=== PATIENT | female | born 1950 | race Caucasian/White ===

== ENCOUNTER 2016-10-29 15:44 | Inpatient (IN) | payer OTHER ==
--- NOTE | 2016-10-29 19:18 | HP ---
CIWA Score - CIWA Score Nausea/Vomitin-Mild Nausea/No Vomiting Muscle Tremors: 4-Moderate,w/Arms Extend Anxiety: 4-Mod. Anxious/Guarded Agitation: 4-Moderately Restless Paroxysmal Sweats: 1-Minimal Palms Moist Orientation: 0-Oriented Tacttile Disturbances: 0-None Auditory Disturbances: 0-None Visual Disturbances: 0-None Headache: 0-None Present CIWA-Ar Total Score: 14 Admission ROS BHS - HPI Chief Complaint: WITHDRAWAL SX Allergies/Adverse Reactions: Allergies Allergy/AdvReac Type Severity Reaction Status Date / Time No Known Allergies Allergy Verified 10/29/16 18:52 History of Present Illness: 66 YEARS OLD FEMALE WITH LONG HISTORY OF ALCOHOL DEPENDENCE HAS BREASTS CA BILATERALLY SURGICALLY REMOVED LAST CHEMOTHERAPY 07/2016 HAS CHRONIC BACK PAIN TREATED WITH NEURONTIN AND DEPRESSION IS ADMITTED TO DETOX Exam Limitations: No Limitations - Ebola screening Have you traveled outside of the country in the last 21 days: No Have you had contact with anyone from an Ebola affected area: No Have you been sick,other than usual withdrawal symptoms: No Do you have a fever: No - Review of Systems Constitutional: Chills, Changes in sleep, Weight Stable EENT: reports: Cataracts (bilaterally), Other (EYE GLASSES) Respiratory: reports: No Symptoms reported Cardiac: reports: No Symptoms Reported GI: reports: Nausea, Poor Fluid Intake, Indigestion, Abdominal cramping : reports: No Symptoms Reported Musculoskeletal: reports: Joint Pain (KNEES ELBOWS) Integumentary: reports: No Symptoms Reported Neuro: reports: Tremors Endocrine: reports: No Symptoms Reported Hematology: reports: No Symptoms Reported Psychiatric: reports: Judgement Intact, Depressed Other Systems: Reviewed and Negative Patient History - Patient Medical History Hx Anemia: No Hx Asthma: No Hx Chronic Obstructive Pulmonary Disease (COPD): No Hx Cancer: No Hx Cardiac Disorders: No Hx Congestive Heart Failure: No Hx Hypertension: No Hx Hypercholesterolemia: No Hx Pacemaker: No HX Cerebrovascular Accident: No Hx Seizures: No Hx Dementia: No Hx Diabetes: No Hx Gastrointestinal Disorders: No Hx Liver Disease: No Hx Genitourinary Disorders: No Hx Sexually Transmitted Disorders: No Hx Renal Disease (ESRD): No Hx Thyroid Disease: No Hx Human Immunodeficiency Virus (HIV): No Hx Hepatitis C: No Hx Depression: Yes Hx Suicide Attempt: No Hx Bipolar Disorder: No Hx Schizophrenia: No - Patient Surgical History Past Surgical History: Yes Hx Neurologic Surgery: No Hx Cataract Extraction: No Hx Cardiac Surgery: No Hx Lung Surgery: No Hx Breast Surgery: Yes ([id number]) Hx Breast Biopsy: No Hx Abdominal Surgery: No Hx Appendectomy: No Hx Cholecystectomy: No Hx Genitourinary Surgery: No Hx Section: No Hx Orthopedic Surgery: No Hx Hysterectomy: No Anesthesia Reaction: No - PPD History Previous Implant?: Yes Documented Results: Negative w/o proof Implanted On Prior [facility] Admission?: No PPD to be Administered?: Yes - Reproductive History Patient is a Female of Child Bearing Age (11 -55 yrs old): No Patient : No - Smoking Cessation Smoking history: Former smoker Have you smoked in the past 12 months: No Aproximately how many cigarettes per day: 0 If you are a former smoker, when did you quit?: 12 YRS AGO Cigars Per Day: 0 Hx Chewing Tobacco Use: No Initiated information on smoking cessation: No - Substance & Tx. History Hx Alcohol Use: Yes Hx Substance Use: No Substance Use Type: Alcohol Hx Substance Use Treatment: No - Substances Abused Alcohol Route: Oral Frequency: Daily Amount used: liquor- 1 pint VOLKA Age of first use: 22 Date of Last Use: 10/28/16 Family Disease History - Family Disease History Family Disease History: CA: Grandparent (BREAST CA), Mother (), Other: Mother Admission Physical Exam [facility] - Vital Signs Vital Signs: Vital Signs - 24 hr 10/29/16 17:24 Temperature 97.5 F L Pulse Rate 86 Respiratory 20 Rate Blood Pressure 155/86 - Physical General Appearance: Yes: Nourished, Appropriately Dressed, Alcohol on Breath, Tremorous, Irritable, Sweating, Anxious HEENTM: Yes: Hearing grossly Normal, Normal ENT Inspection, Normocephalic, Normal Voice Respiratory: Yes: Chest Non-Tender, Lungs Clear, Normal Breath Sounds, No Respiratory Distress, No Accessory Muscle Use Neck: Yes: Supple, Trachea in good position Breast: Yes: Other (BILATERAL REMOVED 2015), Surgical Scar Cardiology: Yes: Regular Rhythm, Regular Rate, S1, S2 Abdominal: Yes: Non Tender, Soft Genitourinary: Yes: Within Normal Limits Back: Yes: Normal Inspection Musculoskeletal: Yes: full range of Motion, Gait Steady Extremities: Yes: Normal Inspection, Normal Range of Motion, Non-Tender, Tremors Neurological: Yes: Fully Oriented, Alert, Motor Strength 5/5, Normal Response, Depressed Affect Integumentary: Yes: Warm Lymphatic: Yes: Within Normal Limits - Diagnostic (1) Alcohol dependence with uncomplicated withdrawal Current Visit: Yes Status: Acute (2) Depression (emotion) Current Visit: Yes Status: Suspected Qualifiers: Depression Type: dysthymia Qualified Code(s): F34.1 - Dysthymic disorder (3) GERD (gastroesophageal reflux disease) Current Visit: Yes Status: Chronic Qualifiers: Esophagitis presence: without esophagitis Qualified Code(s): K21.9 - Gastro-esophageal reflux disease without esophagitis (4) Carcinoma in situ of breast, bilateral Current Visit: Yes Status: Inactive Cleared for Admission S - Detox or Rehab S Level of Care: Medically Managed Detox Regimen/Protocol: Librium S Breath Alcohol Content Breath Alcohol Content: 0 Vital Signs - Height Height: 5 ft 7 in - Weight Weight: 175 lb Weight Measurement Method: Standing Scale Body Mass Index (BMI): 27.3 - Bowel Function Bowel Movement: Yes Urine Pregancy Test - Result Urine Test Results: Negative- NO Line Present Urine Drug Screen - Results Drug Screen Negative: Yes
[2016-10-29 19:24] VITALS: BMI 27.3
[2016-10-29] MEDS ORDERED: LOPERAMIDE HCL 2 MG CAPSULE PO PRN (19:27)
[2016-10-29] MEDS ORDERED: hydrOXYzine PAMOATE 50 MG CAPSULE (FP) PO PRN (19:27)
[2016-10-29] MEDS ORDERED: chlordiazePOXIDE HCL 25 MG CAPSULE PO PRN (19:27)
[2016-10-29] MEDS ORDERED: chlordiazePOXIDE HCL 25 MG CAPSULE PO ONE (19:27)
[2016-10-29] MEDS ORDERED: MENTHOL/PHENOL 1 EACH UD MM PRN (19:27)
[2016-10-29] MEDS ORDERED: P-EPHED 60MG/TRIPROLIDI 2.5MG TABLET PO PRN (19:27)
[2016-10-29] MEDS ORDERED: diphenhydrAMINE HCL 50 MG CAPSULE PO PRN (19:27)
[2016-10-29] MEDS ORDERED: MAGNESIUM CITRATE 300 ML BOTTLE PO PRN (19:27)
[2016-10-29] MEDS ORDERED: MAG HYDROX/AL HYDROX/SIMETH 30 ML UNIT-DOSE CUP PO PRN (19:27)
[2016-10-29] MEDS ORDERED: guaiFENesin/D-METHORPHAN HB 10 ML UNIT-DOSE CUPS PO PRN (19:27)
[2016-10-29] MEDS ORDERED: ACETAMINOPHEN 325 MG TABLET (FP) PO PRN (19:27)
[2016-10-29] MEDS ORDERED: MAGNESIUM HYDROX 2400MG/30ML ORAL SUSPENSION 30 ML CUP PO PRN (19:27)
[2016-10-29] MEDS: chlordiazePOXIDE HCL 25 MG CAPSULE PO SCH (22:24)
[2016-10-29] MEDS: THIAMINE HCL 100 MG TABLET (FP) PO SCH (22:24)
[2016-10-29] MEDS: cloNIDine HCL 0.1 MG TABLET PO PRN (22:24)
[2016-10-29 23:24] LABS: URINE APPEARANCE CLEAR; URINE BILIRUBIN NEGATIVE (NEGATIVE); URINE BLOOD NEGATIVE (NEGATIVE); URINE COLOR LTYELLOW; URINE GLUCOSE (UA) NEGATIVE (NEGATIVE); URINE KETONE NEGATIVE (NEGATIVE); URINE NITRITE NEGATIVE (NEGATIVE); URINE PROTEIN NEGATIVE (NEGATIVE); URINE UROBILINOGEN NEGATIVE E.U./dl (0.2-1.0)
[2016-10-29 23:26] LABS: URINE LEUK ESTERASE TRACE (NEGATIVE)
[2016-10-29 23:28] LABS: URINE HYALINE CAST 1 /lpf; URINE MUCUS RARE; URINE RBC 1 /hpf (0-3); URINE WBC 1 /hpf (3-5)
[2016-10-30] MEDS: chlordiazePOXIDE HCL 25 MG CAPSULE PO SCH ×4 (06:01→22:23)
--- NOTE | 2016-10-30 08:44 | CONSULT ---
[facility] Psychiatric Consult - Data Date of interview: 10/30/16 Admission source: [facility] Identifying data: This is 66 years old female with no [id number] hospitalization history intoxic ated with: Alcohol Substance Abuse History: - Smoking Cessation. Smoking history: Former smoker. Have you smoked in the past 12 months: No. Aproximately how many cigarettes per day: 0. If you are a former smoker, when did you quit?: 12 YRS AGO. Cigars Per Day: 0. Hx Chewing Tobacco Use: No. Initiated information on smoking cessation: No. - Substance & Tx. History. Hx Alcohol Use: Yes. Hx Substance Use: No. Substance Use Type: Alcohol. Hx Substance Use Treatment: No. - Substances Abused. Alcohol. Route: Oral. Frequency: Daily. Amount used: liquor- 1 pint VOLKA. Age of first use: 22. Date of Last Use: 10/28/16 Medical History: GERD, Unclear, as per comuter bilateral Breast Carcinoma in citu Psychiatric History: Patient repoorts history of depression, reports taking prior to admission: Cymbalta 60mg po qhs Physical/Sexual Abuse/Trauma History: Denies Additional Comment: Cymbalta 60mg po qhs Mental Status Exam - Mental Status Exam Alert and Oriented to: Person Cognitive Function: Fair Patient Appearance: Unkempt Mood: Sad Affect: Flat Patient Behavior: Sedated Speech Pattern: Delayed Voice Loudness: Mildly Soft/Quiet Thought Process: Circumstantial, Goal Oriented Thought Disorder: Being Controlled Hallucinations: Denies Suicidal Ideation: Denies Homicidal Ideation: Denies Insight/Judgement: Fair Sleep: Difficulty falling asleep Appetite: Weight loss Muscle strength/Tone: Mild Hypotonicity Gait/Station: Shuffling Additional Comments: Cymbalta 60mg po qhs Psychiatric Findings - Problem List ([place] 1, 2,3) (1) Alcohol dependence with uncomplicated withdrawal Current Visit: Yes Status: Acute (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
[2016-10-30 09:54] LABS: MCH 29.2 pg (25.7-33.7); MCHC 33.2 g/dl (32.0-36.0); MEAN CELL VOLUME 88.1 fl (80-96); MEAN PLT VOLUME 8.8 fl (7.5-11.1); PLATELET COUNT 283 K/MM3 (134-434); RDW 13.3 % (11.6-15.6); WHITE BLOOD COUNT 6.4 K/mm3 (4.0-10.0)
[2016-10-30 09:56] LABS: ALBUMIN 3.7 g/dl (3.4-5.0); ANION GAP 7 (8-16); CALCIUM 9.1 mg/dL (8.5-10.1); CO2 30 mmol/L (21-32); GLUCOSE,RANDOM 92 mg/dL (74-106)
[2016-10-30 10:00] LABS: ALK PHOS 95 U/L (45-117); BILIRUBIN,TOTAL 0.7 mg/dL (0.2-1.0); CREATININE 0.7 mg/dL (0.55-1.02); SGOT/AST 18 U/L (15-37); SGPT/ALT 32 U/L (12-78); TOT PROT 6.8 g/dl (6.4-8.2)
[2016-10-30] MEDS ORDERED: EYELID CLEANSER COMBINATION TP SCH (10:00)
--- NOTE | 2016-10-30 10:14 | PN ---
[facility] CIWA - CIWA Score Nausea/Vomitin Muscle Tremors: 2 Anxiety: 2 Agitation: 2 Paroxysmal Sweats: 3 Orientation: 0-Oriented Tacttile Disturbances: 1-Very Mild Itch/Numbness Auditory Disturbances: 0-None Visual Disturbances: 0-None Headache: 0-None Present CIWA-Ar Total Score: 12 S Progress Note (SOAP) Subjective: interrupted sleep, sweats, mild shakes Objective: 10/30/16 10:12 Vital Signs Temperature 98.2 F 10/30/16 09:39 Pulse Rate 84 10/30/16 09:39 Respiratory Rate 16 10/30/16 09:39 Blood Pressure 129/77 10/30/16 09:39 O2 Sat by Pulse Oximetry (%) Laboratory Tests 10/29/16 10/30/16 23:05 07:00 WBC 6.4 RBC 4.42 Hgb 12.9 Hct 38.9 MCV 88.1 MCHC 33.2 RDW 13.3 Plt Count 283 MPV 8.8 Urine Color Ltyellow Urine Appearance Clear Urine pH 5.0 Ur Specific [place] 1.020 Urine Protein Negative Urine Glucose (UA) Negative Urine Ketones Negative Urine Blood Negative Urine Nitrite Negative Urine Bilirubin Negative Urine Urobilinogen Negative Ur Leukocyte Esterase Trace H Urine RBC 1 Urine WBC 1 Ur Epithelial Cells Rare Hyaline Casts 1 Urine Mucus Rare pending labs pt aox3 in nad , lying in bed Assessment: 10/30/16 10:13 withdrawal sx's Plan: cont detox increase fluids f/up pending labs systane eye drops
[2016-10-30 10:48] LABS: HIV 1 & 2 AB NEGATIVE; HIV 1 AGp24 NEGATIVE
[2016-10-30] MEDS: PRENATAL VITAMINS W/ FOLIC ACID TABLET (FP) PO SCH (10:54)
[2016-10-30] MEDS: cloNIDine HCL 0.1 MG TABLET PO PRN ×2 (10:54→22:23)
[2016-10-30] MEDS: PATIENT'S OWN MEDICATION (NON-FORMULARY) (Anastrozole [Arimidex -] 1 MG) PO SCH (10:55)
--- NOTE | 2016-10-30 14:47 | EKG ---
Test Reason : Blood Pressure : / mmHG Vent. Rate : 081 BPM Atrial Rate : 081 BPM P-R Int : 138 ms QRS Dur : 102 ms QT Int : 388 ms P-R-T Axes : 073 053 057 degrees QTc Int : 450 ms NORMAL SINUS RHYTHM POSSIBLE LEFT ATRIAL ENLARGEMENT INCOMPLETE RIGHT BUNDLE BRANCH BLOCK BORDERLINE ECG WHEN COMPARED WITH ECG OF 01-JUL-2002 14:55, NO SIGNIFICANT CHANGE WAS FOUND Confirmed by CARLEE CONTRERAS, ZEV ([id number]) on 10/30/2016 2:46:53 PM Referred By: Gabe Lao Confirmed By:ZEV BEJARANO MD
[2016-10-30] MEDS ORDERED: DULoxetine HCL 60 MG CAPSULE.DR PO SCH (22:00)
[2016-10-30] MEDS: [UNRECOGNIZED DRUG - OTHER] OU SCH (22:22)
[2016-10-30] MEDS: THIAMINE HCL 100 MG TABLET (FP) PO SCH (22:23)
[2016-10-30] MEDS: DULOXETINE HCL 60 MG PO SCH (22:23)
[2016-10-31] MEDS: chlordiazePOXIDE HCL 25 MG CAPSULE PO SCH ×3 (05:23→18:28)
[2016-10-31] MEDS: PATIENT'S OWN MEDICATION (NON-FORMULARY) (Anastrozole [Arimidex -] 1 MG) PO SCH (10:24)
[2016-10-31] MEDS: [UNRECOGNIZED DRUG - OTHER] OU SCH ×2 (10:25→22:39)
[2016-10-31] MEDS: PRENATAL VITAMINS W/ FOLIC ACID TABLET (FP) PO SCH (10:25)
--- NOTE | 2016-10-31 13:03 | PN ---
S CIWA - CIWA Score Nausea/Vomitin Muscle Tremors: 2 Anxiety: 2 Agitation: 2 Paroxysmal Sweats: 2 Orientation: 0-Oriented Tacttile Disturbances: 2-Mild Itch/Numbness/Burn Auditory Disturbances: 0-None Visual Disturbances: 0-None Headache: 0-None Present CIWA-Ar Total Score: 12 BHS Progress Note (SOAP) Subjective: feeling better only neuropathy pain Objective: 10/31/16 13:02 Vital Signs Temperature 99.1 F 10/31/16 09:55 Pulse Rate 89 10/31/16 09:55 Respiratory Rate 16 10/31/16 09:55 Blood Pressure 111/72 10/31/16 09:55 O2 Sat by Pulse Oximetry (%) Laboratory Tests 10/29/16 10/30/16 10/30/16 23:05 07:00 07:00 WBC 6.4 RBC 4.42 Hgb 12.9 Hct 38.9 MCV 88.1 MCHC 33.2 RDW 13.3 Plt Count 283 MPV 8.8 Sodium Potassium Chloride Carbon Dioxide Anion Gap BUN Creatinine Creat Clearance w eGFR Random Glucose Calcium Total Bilirubin AST ALT Alkaline Phosphatase Total Protein Albumin Urine Color Ltyellow Urine Appearance Clear Urine pH 5.0 Ur Specific [place] 1.020 Urine Protein Negative Urine Glucose (UA) Negative Urine Ketones Negative Urine Blood Negative Urine Nitrite Negative Urine Bilirubin Negative Urine Urobilinogen Negative Ur Leukocyte Esterase Trace H Urine RBC 1 Urine WBC 1 Ur Epithelial Cells Rare Hyaline Casts 1 Urine Mucus Rare RPR Titer Hepatitis C Antibody HIV 1&2 Antibody Screen Negative HIV P24 Antigen Negative 10/30/16 10/30/16 10/30/16 07:00 07:00 11:20 WBC RBC Hgb Hct MCV MCHC RDW Plt Count MPV Sodium 140 Potassium 4.2 Chloride 103 Carbon Dioxide 30 Anion Gap 7 L BUN 22 H Creatinine 0.7 Creat Clearance w eGFR > 60 Random Glucose 92 Calcium 9.1 Total Bilirubin 0.7 AST 18 ALT 32 Alkaline Phosphatase 95 Total Protein 6.8 Albumin 3.7 Urine Color Urine Appearance Urine pH Ur Specific [place] Urine Protein Urine Glucose (UA) Urine Ketones Urine Blood Urine Nitrite Urine Bilirubin Urine Urobilinogen Ur Leukocyte Esterase Urine RBC Urine WBC Ur Epithelial Cells Hyaline Casts Urine Mucus RPR Titer Nonreactive Hepatitis C Antibody 0.1 HIV 1&2 Antibody Screen HIV P24 Antigen pt aox3 in nad ambulating Assessment: 10/31/16 13:02 withdrawal sx;s neuropathy Plan: cont. detox increase fluids motrin prn
[2016-10-31] MEDS: THIAMINE HCL 100 MG TABLET (FP) PO SCH (22:38)
[2016-10-31] MEDS: DULOXETINE HCL 60 MG PO SCH (22:39)
[2016-10-31] MEDS: chlordiazePOXIDE 5 MG CAPSULE PO SCH (22:40)
[2016-10-31] MEDS: cloNIDine HCL 0.1 MG TABLET PO PRN (22:40)
[2016-11-01] MEDS: chlordiazePOXIDE 5 MG CAPSULE PO SCH ×3 (06:07→20:21)
[2016-11-01] MEDS: PATIENT'S OWN MEDICATION (NON-FORMULARY) (Anastrozole [Arimidex -] 1 MG) PO SCH (10:21)
[2016-11-01] MEDS: PRENATAL VITAMINS W/ FOLIC ACID TABLET (FP) PO SCH (10:21)
[2016-11-01] MEDS: [UNRECOGNIZED DRUG - OTHER] OU SCH ×2 (10:22→22:21)
--- NOTE | 2016-11-01 12:44 | PN ---
B[facility] Progress Note (SOAP) Subjective: I'm feeling much better Objective: 11/01/16 12:42 Vital Signs Temperature 97.7 F 11/01/16 09:46 Pulse Rate 75 11/01/16 09:46 Respiratory Rate 18 11/01/16 09:46 Blood Pressure 137/80 11/01/16 09:46 O2 Sat by Pulse Oximetry (%) Laboratory Tests 10/29/16 10/30/16 10/30/16 23:05 07:00 07:00 WBC 6.4 RBC 4.42 Hgb 12.9 Hct 38.9 MCV 88.1 MCHC 33.2 RDW 13.3 Plt Count 283 MPV 8.8 Sodium Potassium Chloride Carbon Dioxide Anion Gap BUN Creatinine Creat Clearance w eGFR Random Glucose Calcium Total Bilirubin AST ALT Alkaline Phosphatase Total Protein Albumin Urine Color Ltyellow Urine Appearance Clear Urine pH 5.0 Ur Specific [place] 1.020 Urine Protein Negative Urine Glucose (UA) Negative Urine Ketones Negative Urine Blood Negative Urine Nitrite Negative Urine Bilirubin Negative Urine Urobilinogen Negative Ur Leukocyte Esterase Trace H Urine RBC 1 Urine WBC 1 Ur Epithelial Cells Rare Hyaline Casts 1 Urine Mucus Rare RPR Titer Hepatitis C Antibody HIV 1&2 Antibody Screen Negative HIV P24 Antigen Negative 10/30/16 10/30/16 10/30/16 07:00 07:00 11:20 WBC RBC Hgb Hct MCV MCHC RDW Plt Count MPV Sodium 140 Potassium 4.2 Chloride 103 Carbon Dioxide 30 Anion Gap 7 L BUN 22 H Creatinine 0.7 Creat Clearance w eGFR > 60 Random Glucose 92 Calcium 9.1 Total Bilirubin 0.7 AST 18 ALT 32 Alkaline Phosphatase 95 Total Protein 6.8 Albumin 3.7 Urine Color Urine Appearance Urine pH Ur Specific [place] Urine Protein Urine Glucose (UA) Urine Ketones Urine Blood Urine Nitrite Urine Bilirubin Urine Urobilinogen Ur Leukocyte Esterase Urine RBC Urine WBC Ur Epithelial Cells Hyaline Casts Urine Mucus RPR Titer Nonreactive Hepatitis C Antibody 0.1 HIV 1&2 Antibody Screen HIV P24 Antigen pt aox3 in nad lying in bed comfortably Assessment: 11/01/16 12:44 withdrawal sx's Plan: cont. detox increase fluids d/c in am
[2016-11-01] MEDS: cloNIDine HCL 0.1 MG TABLET PO PRN (22:21)
[2016-11-01] MEDS: DULOXETINE HCL 60 MG PO SCH (22:21)
[2016-11-01] MEDS: THIAMINE HCL 100 MG TABLET (FP) PO SCH (22:21)
[2016-11-01] MEDS: chlordiazePOXIDE HCL 10 MG CAPSULE PO SCH (22:21)
[2016-11-02] MEDS: chlordiazePOXIDE HCL 10 MG CAPSULE PO SCH ×2 (05:39→11:13)
--- NOTE | 2016-11-02 09:33 | DS ---
[facility] Detox Discharge Summary Admission Date: 10/29/16 Discharge Date: 11/02/16 - History Present History: Alcohol Dependence Pertinent Past History: GERD - Physical Exam Results Vital Signs: Vital Signs Temperature 97.3 F L 11/02/16 06:00 Pulse Rate 70 11/02/16 06:00 Respiratory Rate 18 11/02/16 06:00 Blood Pressure 120/76 11/02/16 06:00 O2 Sat by Pulse Oximetry (%) Pertinent Admission Physical Exam Findings: Withdrawal sx. Laboratory Last Values WBC 6.4 K/mm3 (4.0-10.0) 10/30/16 07:00 RBC 4.42 M/mm3 (3.60-5.2) 10/30/16 07:00 Hgb 12.9 GM/dL (10.7-15.3) 10/30/16 07:00 Hct 38.9 % (32.4-45.2) 10/30/16 07:00 MCV 88.1 fl (80-96) 10/30/16 07:00 MCHC 33.2 g/dl (32.0-36.0) 10/30/16 07:00 RDW 13.3 % (11.6-15.6) 10/30/16 07:00 Plt Count 283 K/MM3 (134-434) 10/30/16 07:00 MPV 8.8 fl (7.5-11.1) 10/30/16 07:00 Sodium 140 mmol/L (136-145) 10/30/16 07:00 Potassium 4.2 mmol/L (3.5-5.1) 10/30/16 07:00 Chloride 103 mmol/L (98-107) 10/30/16 07:00 Carbon Dioxide 30 mmol/L (21-32) 10/30/16 07:00 Anion Gap 7 (8-16) L 10/30/16 07:00 BUN 22 mg/dL (7-18) H 10/30/16 07:00 Creatinine 0.7 mg/dL (0.55-1.02) 10/30/16 07:00 Creat Clearance w eGFR > 60 (>60) 10/30/16 07:00 Random Glucose 92 mg/dL (74-106) 10/30/16 07:00 Calcium 9.1 mg/dL (8.5-10.1) 10/30/16 07:00 Total Bilirubin 0.7 mg/dL (0.2-1.0) 10/30/16 07:00 AST 18 U/L (15-37) 10/30/16 07:00 ALT 32 U/L (12-78) 10/30/16 07:00 Alkaline Phosphatase 95 U/L (45-117) 10/30/16 07:00 Total Protein 6.8 g/dl (6.4-8.2) 10/30/16 07:00 Albumin 3.7 g/dl (3.4-5.0) 10/30/16 07:00 Urine Color Ltyellow 10/29/16 23:05 Urine Appearance Clear 10/29/16 23:05 Urine pH 5.0 (5.0-8.0) 10/29/16 23:05 Ur Specific [place] 1.020 (1.005-1.025) 10/29/16 23:05 Urine Protein Negative (NEGATIVE) 10/29/16 23:05 Urine Glucose (UA) Negative (NEGATIVE) 10/29/16 23:05 Urine Ketones Negative (NEGATIVE) 10/29/16 23:05 Urine Blood Negative (NEGATIVE) 10/29/16 23:05 Urine Nitrite Negative (NEGATIVE) 10/29/16 23:05 Urine Bilirubin Negative (NEGATIVE) 10/29/16 23:05 Urine Urobilinogen Negative E.U./dl (0.2-1.0) 10/29/16 23:05 Ur Leukocyte Esterase Trace (NEGATIVE) H 10/29/16 23:05 Urine RBC 1 /hpf (0-3) 10/29/16 23:05 Urine WBC 1 /hpf (3-5) 10/29/16 23:05 Ur Epithelial Cells Rare /hpf (FEW) 10/29/16 23:05 Hyaline Casts 1 /lpf 10/29/16 23:05 Urine Mucus Rare 10/29/16 23:05 RPR Titer Nonreactive (NONREACTIVE) 10/30/16 07:00 Hepatitis C Antibody 0.1 s/co ratio (0.0-0.9) 10/30/16 11:20 HIV 1&2 Antibody Screen Negative 10/30/16 07:00 HIV P24 Antigen Negative 10/30/16 07:00 labs noted - Treatment Hospital Course: Detox Protocol Followed, Detoxed Safely, Responded well, Discharged Condition Good, Rehab Referral Accepted Patient has Accepted a Rehab Referral to: [facility] - Medication Discharge Medications: Ambulatory Orders Anastrozole [Arimidex -] 1 mg PO DAILY 10/29/16 Duloxetine HCl [Cymbalta -] 60 mg PO DAILY 10/29/16 Esomeprazole Magnesium 40 mg PO DAILY 10/29/16 Eyelid Cleanser Combination #9 [Systane] 1 each TP DAILY 10/29/16 Duloxetine HCl [Cymbalta -] 60 mg PO HS #30 cap 10/30/16 - Diagnosis (1) Alcohol dependence with uncomplicated withdrawal Current Visit: Yes Status: Acute (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
[2016-11-02] MEDS: PRENATAL VITAMINS W/ FOLIC ACID TABLET (FP) PO SCH (09:39)
[2016-11-02] MEDS: PATIENT'S OWN MEDICATION (NON-FORMULARY) (Anastrozole [Arimidex -] 1 MG) PO SCH (09:40)
[2016-11-02] MEDS: [UNRECOGNIZED DRUG - OTHER] OU SCH (09:40)
[2016-11-02 11:05] VITALS: BP 116/66; PULSE 85; TEMP 98.1
== END 2016-11-02 12:15 | disposition home or self-care (01) | DRG 775 ==
LOC: YASAS 15:44 → Y6N 20:14
PROVIDERS: ADMIT Internal Medicine; ATTEND Internal Medicine
PROC: HZ2ZZZZ Detoxification Services for Substance Abuse Treatment (ICD-10-PCS; principal; 2016-11-02)
DX: F10.230 Alcohol dependence with withdrawal, uncomplicated (principal); F10.280 Alcohol dependence with alcohol-induced anxiety disorder; F34.1 Dysthymic disorder; K21.9 Gastro-esophageal reflux disease without esophagitis; Z85.3 Personal history of malignant neoplasm of breast; Z90.13 Acquired absence of bilateral breasts and nipples
CPT/HCPCS: 36415; 80053; 81003; 81015; 85027; 86593; 86803; 87389; 93005; 93010